=== PATIENT | female | born 1990 | race Caucasian/White ===

== ENCOUNTER 2017-04-16 20:55 | Emergency (ER) | payer OTHER ==
[2017-04-16] MEDS ORDERED: Valium 5 MG PO ONE (21:32)
[2017-04-16] MEDS ORDERED: Valium 5 MG ONE (21:35)
--- NOTE | 2017-04-16 21:38 | ERPHSYRPT ---
- History of Present Illness Time Seen by Provider: 04/16/17 21:33 Source: patient Exam Limitations: no limitations Patient Subjective Stated Complaint: numbness and tingling and tearful. states had and today and has felt this way since. denies excessive bleeding or cramping. has history of anxiety Triage Nursing Assessment: alert and awake. tearful states has tingling all over her body. DUNCAN able to ambulate to room with no difficulty. 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 Physician History: The patient is a 26-year-old female who comes in complaining of a panic attack today. Earlier today she had the carried out in [place]. She is now concerned that she did the wrong thing and this is causing her anxiety and panic. She has 4 living children but only cares for one. She cannot care for the other 3 because of her severe anxiety. Her past medical history is significant for anxiety. She normally takes 5 mg of Valium daily but today she took 10 mg so far. She is feeling slightly better after the last 2.5 mg. Timing/Duration: today Severity of Symptoms-Max: moderate Severity of Symptoms-Current: moderate Context related to: other () Allergies/Adverse Reactions: No Known Drug Allergies Allergy (Unverified 02/24/14 20:09) Home Medications: Tramadol HCl 50 mg [Ultram 50 mg] 1 - 2 tab PO Q6HPRN 02/24/14 [History] Nifedipine [Procardia Xl] 60 mg PO DAILY 02/25/14 [History] Hx Tetanus, Diphtheria Vaccination/Date Given: Yes Hx Influenza Vaccination/Date Given: No - Past Medical History Pertinent Past Medical History: Yes Psycho-Social History: Anxiety, Depression - Past Surgical History Past Surgical History: No - Social History Smoking Status: Current every day smoker Exposure to second hand smoke: No Drug Use: none Patient Lives Alone: No - Female History Hx Last Menstrual Period: now - Review of Systems Constitutional: No Fever, No Chills Eyes: No Symptoms Ears, Nose, & Throat: No Symptoms Respiratory: No Cough, No Dyspnea Cardiac: No Chest Pain, No Edema, No Syncope Abdominal/Gastrointestinal: No Abdominal Pain, No Nausea, No Vomiting, No Diarrhea Genitourinary Symptoms: No Dysuria Musculoskeletal: No Back Pain, No Neck Pain Skin: No Rash Neurological: No Dizziness, No Focal Weakness, No Sensory Changes Psychological: Anxiety Endocrine: No Symptoms Hematologic/Lymphatic: No Symptoms Immunological/Allergic: No Symptoms All Other Systems: Reviewed and Negative - Nursing Vital Signs Nursing Vital Signs: Initial Vital Signs Temperature 98.9 F 04/16/17 21:13 Pulse Rate 75 04/16/17 21:13 Respiratory Rate 20 04/16/17 21:13 Blood Pressure 135/98 04/16/17 21:13 O2 Sat by Pulse Oximetry 100 04/16/17 21:13 Pain Scale Pain Intensity 1 - Physical Exam General Appearance: mild distress, other (tearful at times) Eyes, Ears, Nose, Throat Exam: normal ENT inspection, moist mucous membranes Neck Exam: normal inspection, non-tender, supple Respiratory Exam: normal breath sounds, lungs clear, No respiratory distress Cardiovascular Exam: regular rate/rhythm, No edema Gastrointestinal/Abdominal Exam: soft, No tenderness, No distention Extremities Exam: normal inspection, normal range of motion, No evidence of injury, No edema Current Suicidality: denies suicide plan Neurological Exam: alert, 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, oriented x 3 Appearance: appropriate appearance Behavior/Eye Contact/Speech: alert & cooperative, normal speech Thoughts/Hallucinations: normal thought pattern Skin Exam: normal color, warm, dry, No rash SpO2 Interpretation: normal SpO2: 100 Oxygen Delivery: Room Air Ordered Tests: Medication Summary Discontinued Medications Generic Name Dose Route Start Last Admin Trade Name Dariusq PRN Reason Stop Dose Admin Diazepam 5 mg 04/16/17 21:32 Valium 5 Mg PO 04/16/17 21:33 STAT ONE - Progress Progress: improved Counseled pt/family regarding: diagnosis - Departure Time of Disposition: 21:37 Departure Disposition: Home Clinical Impression: Panic attack Condition: Stable Critical Care Time: No Referrals: ED NICOLAS [Primary Care Provider] - Additional Instructions: You had a panic attack as result of the increased emotional stress of today. You were given Valium 5 mg orally in the ER. Please follow-up with your primary care doctor in the next 1-2 days for discussion of different treatment options for anxiety.
[2017-04-16 21:58] VITALS: BP 117/69; PULSE 72; O2SAT 98
== END 2017-04-16 22:33 | disposition home or self-care (01) ==
LOC: ED 20:55
DX: F41.0 Panic disorder [episodic paroxysmal anxiety] (principal)
CPT/HCPCS: 99283; A9270-GY

== ENCOUNTER 2019-06-12 13:48 | Emergency (ER) | payer OTHER ==
[2019-06-12 14:14] VITALS: BP 136/86; PULSE 77; O2SAT 100
[2019-06-12] MEDS ORDERED: Rocephin 1000 MG INJ IM ONE (14:17)
--- NOTE | 2019-06-12 14:26 | ERPHSYRPT ---
- History of Present Illness Time Seen by Provider: 06/12/19 14:22 Source: patient Exam Limitations: no limitations Patient Subjective Stated Complaint: Sore throat Triage Nursing Assessment: Patient ambulated into ED and transferred self to bed. Patient A+O X3. Patient's skin pink, warm and dry. Patient complains of sore throat, runny eyes and castro ear pain. Patient complains of sore throat and headache 4/10. throat noted to be red and swollen. Physician History: Sore throat for 2 days Patient complains of sore throat, runny eyes and castro ear pain. Patient complains of sore throat and headache 4/10. throat noted to be red and swollen. Timing/Duration: abrupt onset Severity: moderate ENT Location: ear (R), mouth, throat, facial Associated Symptoms: ear pain (R), headache, swollen glands, sore throat, difficulty swallowing Allergies/Adverse Reactions: No Known Drug Allergies Allergy (Verified 06/12/19 14:08) Home Medications: Diazepam 1 tab PO BID 06/12/19 [History] Hx Tetanus, Diphtheria Vaccination/Date Given: Yes Hx Influenza Vaccination/Date Given: No Hx Pneumococcal Vaccination/Date Given: No Immunizations Up to Date: Yes - Review of Systems Constitutional: No Fever, No Chills Eyes: No Symptoms Ears, Nose, & Throat: Throat Pain Respiratory: No Cough, No Dyspnea Cardiac: No Chest Pain, No Edema, No Syncope Abdominal/Gastrointestinal: No Abdominal Pain, No Nausea, No Vomiting, No Diarrhea Genitourinary Symptoms: No Dysuria Musculoskeletal: No Back Pain, No Neck Pain Skin: No Rash Neurological: No Dizziness, No Focal Weakness, No Sensory Changes Psychological: No Symptoms Endocrine: No Symptoms All Other Systems: Reviewed and Negative - Past Medical History Pertinent Past Medical History: Yes Neurological History: No Pertinent History ENT History: No Pertinent History Cardiac History: No Pertinent History Respiratory History: No Pertinent History Musculoskeletal History: No Pertinent History GI Medical History: No Pertinent History Psycho-Social History: Anxiety, Depression Female Reproductive Disorders: No Pertinent History - Past Surgical History Past Surgical History: No Neuro Surgical History: No Pertinent History Cardiac: No Pertinent History Respiratory: No Pertinent History Gastrointestinal: No Pertinent History Genitourinary: No Pertinent History Musculoskeletal: No Pertinent History Female Surgical History: No Pertinent History - Social History Smoking Status: Current every day smoker How long have you smoked: years Exposure to second hand smoke: Yes Drug Use: none Patient Lives Alone: No - Female History Hx Last Menstrual Period: 3 weeks ago Hx Now: No - Nursing Vital Signs Nursing Vital Signs: Initial Vital Signs Temperature 98.6 F 06/12/19 14:09 Pulse Rate 77 06/12/19 14:09 Respiratory Rate 18 06/12/19 14:09 Blood Pressure 136/86 06/12/19 14:09 O2 Sat by Pulse Oximetry 100 06/12/19 14:09 Pain Scale Pain Intensity 4 - Physical Exam General Appearance: no apparent distress, alert Eye Exam: bilateral eye: PERRL, EOMI Nasal Exam: normal inspection Throat Exam: pharynx normal, moist mucus membranes, No tonsillar exudate Neck Exam: supple Cardiovascular/Respiratory Exam: normal breath sounds, regular rate/rhythm Abdominal Exam: non-tender, soft Neurologic Exam: alert, oriented x 3, sensation nml, No motor deficits Skin Exam: normal color, warm, dry SpO2: 100 - Course Nursing assessment & vital signs reviewed: Yes Ordered Tests: Medication Summary Discontinued Medications Generic Name Dose Route Start Last Admin Trade Name Ze PRN Reason Stop Dose Admin Ceftriaxone Sodium 1,000 mg 06/12/19 14:17 Rocephin 1000 Mg Inj IM 06/12/19 14:18 STAT ONE - Progress Progress: unchanged Counseled pt/family regarding: diagnosis, need for follow-up - Departure Departure Disposition: Home Clinical Impression: Strep pharyngitis Condition: Stable Critical Care Time: No Referrals: ED NICOLAS [Primary Care Provider] - Instructions: Sore Throat, Adult (DC) Additional Instructions: Discharge/Care Plan BEBETO PALMA was seen on 06/12/19 in the Emergency Room. The patient was counseled regarding Diagnosis,Lab results, Imaging studies, need for follow up and when to return to the Emergency Room. Prescriptions given: Discharge Note I have spoken with the patient and/or caregivers. I have explained the patient' s condition, diagnosis and treatment plan based on the information available to me at this time. I have answered the patient's and/or caregiver's questions and addressed any concerns. The patient and/or caregivers have as good understanding of the patient's diagnosis, condition and treatment plan as can be expected at this point. The vital signs have been stable. The patient's condition is stable and appropriate for discharge from the emergency department. The patient will pursue further outpatient evaluation with the primary care physician or other designated or consulting physician as outlined in the discharge instructions. The patient and/or caregivers are agreeable to this plan of care and follow-up instructions have been explained in detail. The patient and/or caregivers have received these instruction. The patient/and or caregivers are aware that any significant change in condition or worsening of symptoms should prompt an immediate return to this or the closest emergency department or call 911. Prescriptions: Azithromycin [Zithromax] 250 mg PO UD 5 Days #6 tablet
[2019-06-12] MEDS ORDERED: XYLOCAINE 1% HCL 20 ML MDV ONE (14:32)
[2019-06-12] MEDS ORDERED: Rocephin 1000 MG INJ ONE (14:32)
== END 2019-06-12 14:58 | disposition home or self-care (01) ==
LOC: ED 13:48
DX: J02.0 Streptococcal pharyngitis (principal)
CPT/HCPCS: 96372; 99283; J0696